=== PATIENT | male | born 1940 | race Caucasian/White ===

== ENCOUNTER 2017-01-06 22:04 | Emergency (ER) | payer OTHER ==
--- NOTE | 2017-01-06 22:09 | EDPHY ---
H & P HPI/ROS: HPI CHIEF COMPLAINT: nausea, vomiting, diarrhea, abdominal pain after eating salmon HISTORY OF PRESENT ILLNESS: this patient is a 76-year-old male, significant past medical history for diet-controlled diabetes. Presents emergency room by private vehicle with nausea vomiting diarrhea abdominal pain and abdominal cramping. Patient tells me this started approximately an hour and a half ago after eating salmon. He states his son ate the same fish but did not get sick. denies chest pain or shortness of breath. Does admit to ongoing nausea vomiting diarrhea and severe abdominal pain. He states he globally feels weak and fatigued. States he vomited 3-4 times, nonbilious nonbloody. Also had multiple episodes of watery diarrhea. Upon arrival here in the emergency room he is complaining of global weakness, he is flushed, diaphoretic, having ongoing nausea vomiting and diarrhea. Past Medical History: Diet-controlled diabetes Past Surgical History: no surgical history Social History: denies daily use drugs alcohol tobacco products, lives locally, family at bedside Family History: noncontributory ROS REVIEW OF SYSTEMS: A comprehensive 10 point review of systems is otherwise negative aside from elements mentioned in the history of present illness. Exam Constitutional appears nontoxic but diaphoretic, triage nursing summary reviewed, vital signs reviewed, awake/alert. vital signs reviewed. Eyes normal conjunctivae and sclera, EOMI, PERRLA. HENT normal inspection, atraumatic, moist mucus membranes, no epistaxis, neck supple/ no meningismus, no raccoon eyes. Respiratory clear to auscultation bilaterally, normal breath sounds, no respiratory distress, no wheezing. Cardiovascular rate normal, regular rhythm, no murmur, no edema, distal pulses normal. Gastrointestinal soft, non-tender, no rebound, no guarding, normal bowel sounds, no distension, no pulsatile mass. Genitourinary no CVA tenderness. Musculoskeletal no midline vertebral tenderness, full range of motion, no calf swelling, no tenderness of extremities, no meningismus, good pulses, neurovascularly intact. Skin Diaphoretic, pink, flushed,no rash, skin atraumatic. Neurologic awake, alert and oriented x 3, AAOx3, moves all 4 extremities equally, motor intact, sensory intact, CN II-XII intact, normal cerebellar, normal vision, normal speech. Psychiatric normal mood/affect. Heme/Lymph/Immune no lymphadenopathy. Differential diagnosis includes but is not limited to and in no particular order : Food borne illness, ruptured AAA, Bowel obstruction, appendicitis, gallbladder disease, diverticulitis, colitis, enteritis, perforated viscus, gastritis, GERD, esophagitis, urinary tract infection, pyelonephritis, kidney stones Medical Decision Making: plan for this patient IV establishment, IV fluid bolus , Zofran for nausea, Dilaudid for pain control 0.5 mg, CT scan abdomen pelvis with IV contrast to rule out acute significant pathology including bowel obstruction, perforation, ruptured AAA. Check abdominal blood work, check stool sample. Urinalysis. Re-evaluation: EKG interpretation by me on record in [employer] system. Impression Time of EKG 2231, sinus rhythm rate of 76 no acute ischemic changes appreciated. No ST elevation ST depression T-wave abnormalities. No prolonged intervals. Unremarkable EKG. CT scan of the Abdomen pelvis with IV contrast. The results of the study are low density of the pancreatic head, no visible mass, some fluid at the esophageal gastric junction however no free air, no free fluid, no signs of colitis. No signs of acute inflammatory process. Liver cyst. Renal stones. Please see full dictation report by Dr. Mccoy The study was read by Dr. Mccoy. I viewed the images myself on the PACS system. 1219AM: Re-evaluation at this time patient up ambulating well to the bathroom no weakness. Feels much better after IV fluids nausea medicine and pain medicine. He is not vomiting. His blood work and CT scan reviewed. In he understands he needs to follow up with the pancreatic head density with his primary care doctor. As for tonight he appears well nontoxic he is doing much better after IV fluids. Vomiting control. No further diarrhea. Ambulating well. Agreeable on discharge going home. Denies chest pain or shortness of breath. Denies abdominal pain denies feeling nauseous at this time or having any further vomiting or diarrhea. 1228: Patient p.o. challenge well. No vomiting. I went over at length about his CT scan results of his abdomen pelvis about this pancreatic head abnormality. He understands he must follow up his primary care doctor to discuss this with his daughter at bedside. This should call to make an appointment a primary care doctor next 1-2 weeks. Obviously return emergency room if there is worsening abdominal pain fever vomiting they understand. Patient does feel much better is requesting discharge home. Source: Patient - Medical/Surgical History Hx Asthma: No Hx Chronic Respiratory Disease: No Hx Diabetes: Yes Hx Cardiac Disease: No Hx Renal Disease: No Hx Cirrhosis: No Hx Alcoholism: No Hx HIV/AIDS: No Hx Splenectomy or Spleen Trauma: No Other PMH: diabetes- diet controlled - Social History Smoking Status: Never smoked Constitutional: Initial Vital Signs Temperature (C) 36.5 C 01/06/17 22:14 Heart Rate 84 01/06/17 22:14 Respiratory Rate 18 01/06/17 22:14 Blood Pressure 159/103 H 01/06/17 22:14 O2 Sat (%) 93 01/06/17 22:14 O2 Delivery Mode Room Air O2 (L/minute) 2 Allergies/Adverse Reactions: No Known Allergies Allergy (Unverified 04/29/09 13:21) Home Medications: Medication Instructions Recorded Ondansetron HCl [Zofran] 4 mg PO Q4-6PRN PRN #10 tablet 01/07/17 Medical Decision Making - Data Points Laboratory Results: Laboratory Results 01/06/17 22:18 01/06/17 22:18 01/07/17 01/06/17 01/06/17 00:20 22:35 22:18 WBC RBC Hgb Hct MCV MCH MCHC RDW Plt Count MPV Neut % (Auto) Lymph % (Auto) [place] % (Auto) Eos % (Auto) Baso % (Auto) Nucleat RBC Rel Count Absolute Neuts (auto) Absolute Lymphs (auto) Absolute Monos (auto) Absolute Eos (auto) Absolute Basos (auto) Absolute Nucleated RBC Immature Gran % Immature Gran # PT INR APTT VBG Lactic Acid 1.1 mmol/L mmol/L (0.7-2.1) Sodium 143 mEq/L mEq/L (134-144) Potassium 3.9 mEq/L mEq/L (3.5-5.2) Chloride 108 mEq/L mEq/L (97-110) Carbon Dioxide 21 mEq/l L mEq/l (22-31) Anion Gap 14 mEq/L mEq/L (8-16) BUN 34 mg/dL H mg/dL (7-23) Creatinine 1.3 mg/dL mg/dL (0.7-1.3) Estimated GFR 54 Glucose 127 mg/dL H mg/dL (70-100) Calcium 9.4 mg/dL mg/dL (8.5-10.4) Total Bilirubin 0.8 mg/dL mg/dL (0.1-1.4) Conjugated Bilirubin 0.3 mg/dL mg/dL (0.0-0.5) Unconjugated Bilirubin 0.5 mg/dL mg/dL (0.0-1.1) AST 22 IU/L IU/L (17-59) ALT 37 IU/L IU/L (21-72) Alkaline Phosphatase 63 IU/L IU/L (38-126) Troponin I < 0.012 ng/mL ng/mL (0-0.034) Total Protein 7.2 g/dL g/dL (6.3-8.2) Albumin 4.3 g/dL g/dL (3.5-5.0) Lipase 90.0 IU/L IU/L (23-300) Urine Color Pending Urine Appearance Pending Urine pH Pending Ur Specific [place] Pending Urine Protein Pending Urine Ketones Pending Urine Blood Pending Urine Nitrate Pending Urine Bilirubin Pending Urine Urobilinogen Pending Ur Leukocyte Esterase Pending Urine Glucose Pending 01/06/17 01/06/17 22:18 22:18 WBC 9.36 10^3/uL 10^3/uL (3.80-9.50) RBC 4.92 10^6/uL 10^6/uL (4.40-6.38) Hgb 15.0 g/dL g/dL (13.7-17.5) Hct 45.1 % % (40.0-51.0) MCV 91.7 fL fL (81.5-99.8) MCH 30.5 pg pg (27.9-34.1) MCHC 33.3 g/dL g/dL (32.4-36.7) RDW 13.9 % % (11.5-15.2) Plt Count 182 10^3/uL 10^3/uL (150-400) MPV 11.6 fL fL (8.7-11.7) Neut % (Auto) 53.0 % % (39.3-74.2) Lymph % (Auto) 37.4 % % (15.0-45.0) [place] % (Auto) 7.7 % % (4.5-13.0) Eos % (Auto) 1.0 % % (0.6-7.6) Baso % (Auto) 0.6 % % (0.3-1.7) Nucleat RBC Rel Count 0.0 % % (0.0-0.2) Absolute Neuts (auto) 4.96 10^3/uL 10^3/uL (1.70-6.50) Absolute Lymphs (auto) 3.50 10^3/uL H 10^3/uL (1.00-3.00) Absolute Monos (auto) 0.72 10^3/uL 10^3/uL (0.30-0.80) Absolute Eos (auto) 0.09 10^3/uL 10^3/uL (0.03-0.40) Absolute Basos (auto) 0.06 10^3/uL 10^3/uL (0.02-0.10) Absolute Nucleated RBC 0.00 10^3/uL 10^3/uL (0-0.01) Immature Gran % 0.3 % % (0.0-1.1) Immature Gran # 0.03 10^3/uL 10^3/uL (0.00-0.10) PT 12.9 SEC SEC (12.0-15.0) INR 0.98 (0.83-1.16) APTT 22.9 SEC L SEC (23.0-38.0) VBG Lactic Acid Sodium Potassium Chloride Carbon Dioxide Anion Gap BUN Creatinine Estimated GFR Glucose Calcium Total Bilirubin Conjugated Bilirubin Unconjugated Bilirubin AST ALT Alkaline Phosphatase Troponin I Total Protein Albumin Lipase Urine Color Urine Appearance Urine pH Ur Specific [place] Urine Protein Urine Ketones Urine Blood Urine Nitrate Urine Bilirubin Urine Urobilinogen Ur Leukocyte Esterase Urine Glucose Medications Given: Discontinued Medications Hydromorphone HCl (Dilaudid) 0.5 mg IVP EDNOW ONE Stop: 01/06/17 22:23 Last Admin: 01/06/17 22:36 Dose: Not Given Sodium Chloride (Ns) 2,000 mls @ 0 mls/hr IV ONCE ONE; Wide Open PRN Reason: Protocol Stop: 01/06/17 22:18 Last Admin: 01/06/17 22:37 Dose: 2,000 mls Ondansetron HCl (Zofran) 4 mg IVP EDNOW ONE Stop: 01/06/17 22:18 Last Admin: 01/06/17 22:36 Dose: 4 mg Departure - Departure Disposition: Home, Routine, Self-Care Clinical Impression: Vomiting and diarrhea Condition: Good Instructions: Acute Nausea and Vomiting (ED) Additional Instructions: 1. you have an abnormality seen on your CT scan of your pancreatic head. 2. You need to follow up with her primary care doctor about this. You will need a different type CT scan to better visualize and image your pancreas. 3. Return emergency room if develops worsening abdominal pain, fever, vomiting. 4. Please call make a follow-up appoint with your primary care doctor to obtain further imaging of your pancreas. Referrals: Patient,NotPresent [Unknown] - As per Instructions Prescriptions: Ondansetron HCl [Zofran] 4 mg PO Q4-6PRN PRN #10 tablet PRN Reason: Nausea/Vomiting, Use 1st
[2017-01-06 22:17] VITALS: TEMP 97.7
[2017-01-06] MEDS ORDERED: ONDANSETRON 4 MG/2 ML VIAL IVP ONE (22:17)
[2017-01-06] MEDS ORDERED: NS 2,000 ML IV ONE (22:17)
[2017-01-06] MEDS ORDERED: HYDROmorphONE/DILAUDID 1 MG/ML SYR IVP ONE (22:22)
[2017-01-06 22:31] LABS: % IMMATURE GRANULYOCYTES 0.3 % (0.0-1.1); ABSOLUTE IMMATURE GRANULOCYTES 0.03 10^3/uL (0.00-0.10); ADD DIFF? NO; ADD MORPH? NO; ADD SCAN? NO; ATYPICAL LYMPHOCYTE FLAG 0 (0-99); FRAGMENT RBC FLAG 0 (0-99); HEMATOCRIT 45.1 % (40.0-51.0); LEFT SHIFT FLG 0 (0-99); LIPEMIA HEMOLYSIS FLAG 80 (0-99); MEAN CELL HEMOGLOBIN 30.5 pg (27.9-34.1); MEAN CELL HEMOGLOBIN CONCENTR. 33.3 g/dL (32.4-36.7); MEAN CELL VOLUME 91.7 fL (81.5-99.8); MEAN PLATELET VOLUME 11.6 fL (8.7-11.7); PLATELET CLUMPS FLAG 0 (0-99); PLATELET COUNT 182 10^3/uL (150-400); RED BLOOD CELL COUNT 4.92 10^6/uL (4.40-6.38); RED CELL DISTRIBUTION WIDTH 13.9 % (11.5-15.2)
--- NOTE | 2017-01-06 22:33 | CPEKG ---
Heart Rate: 76 RR Interval: 789 P-R Interval: 200 QRSD Interval: 86 QT Interval: 404 QTC Interval: 455 P [place]: 76 QRS [place]: 16 T Wave [place]: 51 EKG Severity - NORMAL ECG - EKG Impression: SINUS RHYTHM Electronically Signed By: Matt Andrew 07-Jan-2017 06:58:21
[2017-01-06 22:36] LABS: ALANINE AMINOTRANSFERASE 37 IU/L (21-72); ALBUMIN 4.3 g/dL (3.5-5.0); ALKALINE PHOSPHATASE 63 IU/L (38-126); ANION GAP 14 mEq/L (8-16); ASPARTATE AMINOTRANSFERASE 22 IU/L (17-59); BILIRUBIN,TOTAL 0.8 mg/dL (0.1-1.4); BILIRUBIN-CONJUGATED 0.3 mg/dL (0.0-0.5); BILIRUBIN-UNCONJUGATED 0.5 mg/dL (0.0-1.1); CALCIUM 9.4 mg/dL (8.5-10.4); CARBON DIOXIDE 21 mEq/l (22-31); CHLORIDE 108 mEq/L (97-110); CREATININE 1.3 mg/dL (0.7-1.3); GLOMERULAR FILTRATION RATE 54; GLUCOSE 127 mg/dL (70-100); INR 0.98 (0.83-1.16); POTASSIUM 3.9 mEq/L (3.5-5.2); PROTIME(PATIENT) 12.9 SEC (12.0-15.0); SODIUM 143 mEq/L (134-144); TOTAL PROTEIN 7.2 g/dL (6.3-8.2)
[2017-01-06 22:37] LABS: APTT 22.9 SEC (23.0-38.0)
[2017-01-06 22:47] LABS: TROPONIN I < 0.012 ng/mL (0-0.034)
[2017-01-06] MEDS ORDERED: IOPAMIDOL (ISOVUE-300) 100 ML BTL ONE (22:47)
[2017-01-06 23:43] VITALS: O2SAT 97
[2017-01-07 00:31] LABS: COLOR PALE YELLOW; LEUKOCYTE ESTERASE,URINE NEGATIVE (NEGATIVE); NITRITE,URINE NEGATIVE (NEGATIVE)
[2017-01-07 00:41] VITALS: BP 148/92; PULSE 82; RESP 20
[2017-01-07] MEDS ORDERED: ONDANSETRON 4MG PREPACK#2 BTL TAKEHOME ONE (00:58)
== END 2017-01-07 01:00 | disposition home or self-care (01) ==
DX: R19.7 Diarrhea, unspecified (principal); R11.10 Vomiting, unspecified; E11.9 Type 2 diabetes mellitus without complications; E86.9 Volume depletion, unspecified
CPT/HCPCS: 74177; 93005; 96374; 99285; J1170; J2405; Q9967

== ENCOUNTER 2017-01-10 22:39 | Inpatient (IN) | payer OTHER ==
[2017-01-10] MEDS ORDERED: ONDANSETRON 4 MG/2 ML VIAL IVP ONE (23:16)
[2017-01-10] MEDS ORDERED: NS 1,000 ML IV ONE (23:16)
--- NOTE | 2017-01-10 23:21 | EDPHY ---
H & P Stated Complaint: abd pressure, nausea HPI/ROS: HPI The patient presents with abdominal pain which began at approximately 9:00 p.m. tonight. It started slowly and has been present ever since. He feels it in his left back and left abdomen. He has vomited once and feels generally nauseated. He was seen here in the emergency room on January 06 for nausea, vomiting, diarrhea which he thought was related to eating bad fish. He had a CT scan which was performed and demonstrated inflammation at the pancreatic head suspicious for inflammation verses neoplasm. He has made a follow-up appointment. Since January 06, he has not had any bowel movements. He thinks he is constipated.. REVIEW OF SYSTEMS Constitutional: No fever, no chills. Eyes: No discharge. ENT: No sore throat. Cardiovascular: No chest pain, no palpitations. Respiratory: No cough, no shortness of breath. Gastrointestinal: See HPI Genitourinary: No hematuria. Musculoskeletal: No back pain. Skin: No rashes. Neurological: No headache. PMHx: No prior abdominal operations, diet controlled diabetes Soc Hx: Housed PHYSICAL General Appearance: Alert, no distress Eyes: Pupils equal and round no pallor or injection ENT, Mouth: Mucous membranes moist Respiratory: There are no retractions, lungs are clear to auscultation Cardiovascular: Regular rate and rhythm Gastrointestinal: Abdomen is soft, somewhat distended, tenderness and left upper and lower quadrants without guarding or rebound Neurological: A&O, moves all extremities Skin: Warm and dry, no rashes Musculoskeletal: Neck is supple non tender Extremities: symmetrical, full range of motion Psychiatric: Patient is oriented X 3, there is no agitation Source: Patient, Old records Exam Limitations: No limitations - Personal History Current Tetanus/Diphtheria Vaccine: Yes - Medical/Surgical History Hx Asthma: No Hx Chronic Respiratory Disease: No Hx Diabetes: Yes Hx Cardiac Disease: No Hx Renal Disease: No Hx Cirrhosis: No Hx Alcoholism: No Hx HIV/AIDS: No Hx Splenectomy or Spleen Trauma: No Other PMH: diabetes- diet controlled - Social History Smoking Status: Never smoked Constitutional: Initial Vital Signs Temperature (C) 36.8 C 01/10/17 22:40 Heart Rate 74 01/10/17 22:40 Respiratory Rate 15 01/10/17 22:40 Blood Pressure 142/83 H 01/10/17 22:40 O2 Sat (%) 91 L 01/10/17 22:40 O2 Delivery Mode Room Air Allergies/Adverse Reactions: No Known Allergies Allergy (Unverified 04/29/09 13:21) Home Medications: Medication Instructions Recorded Ondansetron HCl [Zofran] 4 mg PO Q4-6PRN PRN #10 tablet 01/07/17 Medical Decision Making - Diagnostics Imaging Results: Imaging Impressions Abdomen X-Ray 01/10/17 23:17 Impression: 1. Constipation without fecal impaction. 2. No small bowel obstruction. Findings and recommendations discussed with Emergency Department physician, Sylvia Esquivel MD at 23:51 hour, 01/10/2017. Final report concurs with initial preliminary interpretation. Imaging: Discussed imaging studies w/ mortgage processor Radiologist, I viewed and interpreted images myself Differential Diagnosis: This is a 76-year-old male who presents from home with vomiting, constipation, and left-sided abdominal pain for the last 1 day. He was seen here 4 days ago for nausea and vomiting and was diagnosed with inflammation of the pancreatic head. Differential diagnosis includes constipation, bowel obstruction, pancreatitis, pancreatic neoplasm. In the emergency room, the patient was given a L of IV fluid given his vomiting. He received Zofran for nausea and required 2 doses of this. Labs were obtained and were unremarkable. KUB was performed which shows constipation versus ileus. The patient was administered soapsuds enema. He did not have any bowel movement. I attempted fecal disimpaction, however there was no stool in the rectal vault. He was given magnesium citrate and tolerated it, however did not have any bowel movement. After approximately 4 hours in the emergency room patient continued to have abdominal discomfort, though no vomiting. Did not feel well enough to go home. I believe he should be admitted for observation to make sure his pain improves. If he has continued pain and constipation, he may require repeat CT scan to evaluate for small bowel obstruction. However, with scan performed 4 days ago and no abdominal operations, feel SBO is less likely in his case. I have consulted with the on-call hospitalist Dr. Burton who will admit the patient. - Data Points Laboratory Results: Laboratory Results 01/10/17 22:52 01/10/17 01/10/17 22:52 22:52 WBC 7.65 10^3/uL 10^3/uL (3.80-9.50) RBC 4.88 10^6/uL 10^6/uL (4.40-6.38) Hgb 15.0 g/dL g/dL (13.7-17.5) Hct 44.3 % % (40.0-51.0) MCV 90.8 fL fL (81.5-99.8) MCH 30.7 pg pg (27.9-34.1) MCHC 33.9 g/dL g/dL (32.4-36.7) RDW 13.4 % % (11.5-15.2) Plt Count 193 10^3/uL 10^3/uL (150-400) MPV 11.5 fL fL (8.7-11.7) Neut % (Auto) 71.2 % % (39.3-74.2) Lymph % (Auto) 18.2 % % (15.0-45.0) [place] % (Auto) 7.7 % % (4.5-13.0) Eos % (Auto) 2.1 % % (0.6-7.6) Baso % (Auto) 0.3 % % (0.3-1.7) Nucleat RBC Rel Count 0.0 % % (0.0-0.2) Absolute Neuts (auto) 5.45 10^3/uL 10^3/uL (1.70-6.50) Absolute Lymphs (auto) 1.39 10^3/uL 10^3/uL (1.00-3.00) Absolute Monos (auto) 0.59 10^3/uL 10^3/uL (0.30-0.80) Absolute Eos (auto) 0.16 10^3/uL 10^3/uL (0.03-0.40) Absolute Basos (auto) 0.02 10^3/uL 10^3/uL (0.02-0.10) Absolute Nucleated RBC 0.00 10^3/uL 10^3/uL (0-0.01) Immature Gran % 0.5 % % (0.0-1.1) Immature Gran # 0.04 10^3/uL 10^3/uL (0.00-0.10) Total Bilirubin 1.2 mg/dL mg/dL (0.1-1.4) Conjugated Bilirubin 0.3 mg/dL mg/dL (0.0-0.5) Unconjugated Bilirubin 0.9 mg/dL mg/dL (0.0-1.1) AST 17 IU/L IU/L (17-59) ALT 34 IU/L IU/L (21-72) Alkaline Phosphatase 72 IU/L IU/L (38-126) Total Protein 6.6 g/dL g/dL (6.3-8.2) Albumin 4.1 g/dL g/dL (3.5-5.0) Lipase 75.0 IU/L IU/L (23-300) Medications Given: Discontinued Medications Sodium Chloride (Ns) 1,000 mls @ 0 mls/hr IV EDNOW ONE; Wide Open PRN Reason: Protocol Stop: 01/10/17 23:17 Last Admin: 01/10/17 23:25 Dose: 1,000 mls Ketorolac Tromethamine (Toradol) 15 mg IVP EDNOW ONE Stop: 01/11/17 01:06 Last Admin: 01/11/17 01:09 Dose: 15 mg Magnesium Citrate (Magnesium Citrate) 300 ml PO ONCE ONE Stop: 01/11/17 00:21 Last Admin: 01/11/17 00:34 Dose: 300 ml Ondansetron HCl (Zofran) 4 mg IVP EDNOW ONE Stop: 01/10/17 23:17 Last Admin: 01/10/17 23:26 Dose: 4 mg Ondansetron HCl (Zofran) 4 mg IVP EDNOW ONE Stop: 01/11/17 00:21 Last Admin: 01/11/17 00:34 Dose: 4 mg Departure - Departure Disposition: [facility] [place] Inpatient Acute Clinical Impression: Abdominal pain Qualifiers: Abdominal location: generalized Qualified Code(s): R10.84 - Generalized abdominal pain Constipation Qualifiers: Constipation type: unspecified constipation type Qualified Code(s): K59.00 - Constipation, unspecified Condition: Fair
[2017-01-10 23:24] LABS: % IMMATURE GRANULYOCYTES 0.5 % (0.0-1.1); ABSOLUTE IMMATURE GRANULOCYTES 0.04 10^3/uL (0.00-0.10); ADD DIFF? NO; ADD MORPH? NO; ADD SCAN? NO; ATYPICAL LYMPHOCYTE FLAG 20 (0-99); FRAGMENT RBC FLAG 0 (0-99); HEMATOCRIT 44.3 % (40.0-51.0); LEFT SHIFT FLG 0 (0-99); LIPEMIA HEMOLYSIS FLAG 90 (0-99); MEAN CELL HEMOGLOBIN 30.7 pg (27.9-34.1); MEAN CELL HEMOGLOBIN CONCENTR. 33.9 g/dL (32.4-36.7); MEAN CELL VOLUME 90.8 fL (81.5-99.8); MEAN PLATELET VOLUME 11.5 fL (8.7-11.7); PLATELET CLUMPS FLAG 0 (0-99); PLATELET COUNT 193 10^3/uL (150-400); RED BLOOD CELL COUNT 4.88 10^6/uL (4.40-6.38); RED CELL DISTRIBUTION WIDTH 13.4 % (11.5-15.2)
[2017-01-10 23:32] LABS: ALBUMIN 4.1 g/dL (3.5-5.0); BILIRUBIN,TOTAL 1.2 mg/dL (0.1-1.4); BILIRUBIN-CONJUGATED 0.3 mg/dL (0.0-0.5); BILIRUBIN-UNCONJUGATED 0.9 mg/dL (0.0-1.1); TOTAL PROTEIN 6.6 g/dL (6.3-8.2)
[2017-01-11] MEDS ORDERED: MAGNESIUM CITRATE 300 ML BOTTLE PO ONE (00:20)
[2017-01-11] MEDS ORDERED: ONDANSETRON 4 MG/2 ML VIAL IVP ONE (00:20)
[2017-01-11] MEDS ORDERED: KETOROLAC 15 MG/1 ML SDV IVP ONE (01:05)
[2017-01-11] MEDS: HYDROmorphONE/DILAUDID 1 MG/ML SYR IVP PRN ×2 (04:36→15:18)
[2017-01-11 05:54] LABS: COLOR YELLOW; LEUKOCYTE ESTERASE,URINE NEGATIVE (NEGATIVE); NITRITE,URINE NEGATIVE (NEGATIVE)
[2017-01-11 05:57] LABS: MUCUS 1+ /lpf (NONE-1+); RBC,URINE 50-182 /hpf (0-3)
[2017-01-11] MEDS ORDERED: GOLYTELY 4000 ML BTL PO ONE (07:37)
--- NOTE | 2017-01-11 08:10 | GHP ---
[f rep st] HISTORY AND PHYSICAL DATE OF ADMISSION: 01/11/2017 CHIEF COMPLAINT: Abdominal pain. HISTORY OF PRESENT ILLNESS: This is a 76-year-old male with no past medical history. A couple week s ago he developed some epigastric pain after eating some bad salmon, came to the emergency departme . CT scan at that time showed some pancreatic inflammation versus neoplasm at the head of the lawrence creas. He was set up with followup appointments. However, since then he has not had any significan t bowel movements. Today he is complaining of lower abdominal pain, not epigastric pain as before. He has had some nausea and a little bit of vomiting. He has tried Bowel Max, and magnesium citrate with no effect. They attempted to disimpact him in the emergency department but there was no stool in the vault. REVIEW OF SYSTEMS: A 10-point review of systems was obtained on this date and was negative. PAST MEDICAL HISTORY: None SOCIAL HISTORY: No smoking. FAMILY HISTORY: Reviewed and noncontributory. PHYSICAL EXAM: VITAL SIGNS: Afebrile, blood pressure is 115/59, heart rate 62, oxygen saturation 9 2% on room air. GENERAL: The patient is well developed, in no apparent distress. HEENT: Nonicter ic sclerae. Extraocular movements intact. Moist mucous membranes. NECK: Supple. No thyromegaly. LUNGS: Good effort. Clear to auscultation bilaterally. CARDIOVASCULAR: Regular rate and rhythm . No murmurs or gallops. ABDOMEN: Positive bowel sounds. Soft, nontender, nondistended. No hepa tosplenomegaly. EXTREMITIES: No clubbing, cyanosis, or edema. SKIN: Without rash, intact. NEURO LOGIC: He is moving all 4 extremities equally. PSYCH: Normal affect. LAB: CBC is normal. Chemistries normal. UA does show 3+ blood. Abdominal x-ray shows constipatio n. CT scan done last week showed hypodensity in the pancreatic head and small stones in the left ki dney. ASSESSMENT: This is a 76-year-old male presenting with lower abdominal pain most likely due to cons tipation. PLAN: 1. Constipation. Since patient has already tried magnesium citrate, we will go ahead and give 1 L of GoLYTELY to get a bowel movement going. He is not particularly distended or even tender. This r aises a possibility especially with the blood in his urine that this pain may be coming from a kidne y stone. These were small stones in the previous CT scan and this pain and presentation are not par ticularly consistent with kidney stones. So, we will hold off on any further CT scanning and just s ee how he does with GoLYTELY. 2. Pancreatic mass. He does have an appointment with Gastroenterology in the upcoming weeks. 3. Admission. Patient will be admitted on observation status. Case discussed with ER physician. /[id number]/MODL
--- NOTE | 2017-01-11 15:01 | HOSPPROG ---
Hospitalist Progress Note Assessment/Plan: 76y male with constipation. #Constipation cont therapy BM x3 # Epigastric edema hx of ulcer restart protonix FU outpt Dr mckeon #Hx of lung nodule needs fu CT #Pancreatic abnormality fu PCP CT #HX of DM will check labs not on any meds #Hx of pituitary adenoma fu primary endocrine reviewed with PCP case management #Dispo admit inpt. will stay tonight possible dc 1-2 days FU appt made with PCP for above issues. Subjective: Still not feeling great. Not hungry. No pain. Objective: Vital Signs Temp Pulse Resp BP Pulse Ox 36.7 C 62 16 123/71 H 91 L 01/11/17 11:50 01/11/17 11:50 01/11/17 11:50 01/11/17 11:50 01/11/17 11:50 01/10/17 01/11/17 01/12/17 05:59 05:59 05:59 Intake Total 1500 Output Total 200 Balance 1300 - Physical Exam Constitutional: no apparent distress, not in pain Eyes: PERRL Ears, Nose, Mouth, Throat: moist mucous membranes, hearing normal Cardiovascular: regular rate and rhythym, No JVD Respiratory: no respiratory distress Gastrointestinal: No tenderness, No ascites Skin: warm, normal color Musculoskeletal: full muscle strength Neurologic: AAOx3 Psychiatric: not anxious, not encephalopathic ICD10 Worksheet Patient Problems: Problems Problem Status Onset Abdominal pain Acute Constipation Acute
[2017-01-11] MEDS: PANTOPRAZOLE SODIUM 40 MG TAB PO SCH ×2 (15:21→20:51)
[2017-01-11] MEDS: KETOROLAC 15 MG/1 ML SDV IVP PRN (20:50)
[2017-01-12 04:31] VITALS: RESP 16; O2SAT 90
[2017-01-12 07:50] VITALS: TEMP 98.1
[2017-01-12] MEDS: KETOROLAC 15 MG/1 ML SDV IVP PRN (08:11)
[2017-01-12] MEDS: PANTOPRAZOLE SODIUM 40 MG TAB PO SCH (08:11)
[2017-01-12 11:54] VITALS: BP 133/76; PULSE 64
--- NOTE | 2017-01-13 04:20 | GDS ---
[f rep st] DISCHARGE SUMMARY DISCHARGE DIAGNOSES: 1. Constipation. 2. Kidney stone. PHYSICAL EXAMINATION: GENERAL: The patient is alert. VITAL SIGNS: Afebrile at 36.7, pulse is 64, respiratory rate 16, blood pressure is 133/76. He is saturating 90% on room air. I have seen and evaluated the patient on the day of discharge. HOSPITAL COURSE: The patient is a 76-year-old male, who presented to the hospital with complaints o f constipation. He was evaluated and diagnosed with: 1. Constipation. During this hospitalization, he has had multiple bowel movements. He was given G oLYTELY prep and has responded well and appropriately. His constipation has completely resolved. 2. Epigastric edema. The patient has had a history of ulcer in the past and has been evaluated by Dr. Thompson. I have recommended that he follow up with Dr. Thompson, and he reinitiate proton pump inhibitor at the time of disposition. He is in agreement with this plan. 3. History of lung nodule. The patient was recommended to have follow-up CT scan in the outpatient setting, but followup was not obtained. I have arranged a primary care appointment for the patient prior to disposition. He will follow up with regard to this issue. 4. Pancreatic abnormality. Again, this was identified on CAT scan during the hospital course. He will follow up with his primary care physician to establish a plan of routine evaluation. 5. History of diabetes mellitus. Primary care will manage this medical situation. 6. Kidney stones. Patient has multiple noted stones on CT scan, as well as calculi in his bladder. His symptoms are intermittent and appear to be stable. His pain is well managed currently. 7. History of pituitary adenoma. The patient tells me he has been seen by his teletypesetter monitor anny cronin, and his laboratory evaluations have been stable with no further indication for treatment neede d at this time. DISPOSITION: The patient will be discharged home independently. I reviewed his discharge plan with the patient liaison from Dr. Hernandez's office, as well as the patient and the telehealth case manager. He mayra l continue followup in the outpatient setting. An appointment has been arranged for the patient julia h his primary care office on 01/19/2017. DISCHARGE MEDICATIONS: I have not initiated any prescriptions at the time of disposition. I have educated him at length with regard to his followup needs. He is understanding and in agreeme nt with this plan. I spent greater than 35 minutes in the care, coordination, and management of the patient's discharge . /[id number]/MODL
== END 2017-01-12 13:40 | disposition home or self-care (01) | DRG 392 ==
LOC: F3N 01-11 03:47 → OBSVTOIN 01-11 18:20
PROVIDERS: ADMIT Internal Medicine; ATTEND Internal Medicine
DX: K59.00 Constipation, unspecified (principal); N20.0 Calculus of kidney; E11.9 Type 2 diabetes mellitus without complications; K86.89 Other specified diseases of pancreas; D35.2 Benign neoplasm of pituitary gland; R91.1 Solitary pulmonary nodule
CPT/HCPCS: 96374; J1170; J1885; J2405

== ENCOUNTER → 2017-01-23 | Outpatient (CLI) | payer OTHER ==
[~2017-01-23] MED LIST: GADOBUTROL 10 ML VIAL IVP ONE
== END ==
LOC: FIMAGING 10:09
PROVIDERS: ATTEND Internal Medicine
DX: Q45.3 Other congenital malformations of pancreas and pancreatic duct (principal); N13.30 Unspecified hydronephrosis; K76.89 Other specified diseases of liver; N28.1 Cyst of kidney, acquired; K44.9 Diaphragmatic hernia without obstruction or gangrene
CPT/HCPCS: 74183; A9585

== ENCOUNTER → 2017-03-29 | Outpatient (CLI) | payer OTHER | LOC: FIMAGING 09:38 | PROVIDERS: ATTEND Internal Medicine Gastroenterology | DX: N13.30 Unspecified hydronephrosis (principal); K76.89 Other specified diseases of liver; R91.1 Solitary pulmonary nodule; R93.5 Abnormal findings on diagnostic imaging of other abdominal regions, including retroperitoneum; D37.8 Neoplasm of uncertain behavior of other specified digestive organs | CPT/HCPCS: 74183; A9585 ==

== ENCOUNTER → 2017-03-31 | Outpatient (CLI) | payer OTHER | LOC: FIMAGING 08:44 | PROVIDERS: ATTEND Internal Medicine | DX: R91.1 Solitary pulmonary nodule (principal) ==